=== PATIENT | male | born 1955 | race Caucasian/White ===

== ENCOUNTER → 2016-12-12 | Outpatient (CLI) | payer OTHER, BC ==
[~2016-12-12] VITALS: Ht 177.8 cm; Wt 123.6 kg
[~2016-12-12] MED LIST: ADULT LOW DOSE81 MG PO; ALLEGRA ALLERG180 MG PO; ALLEGRA180 MG PO; ALTACE10 M1 PO; ALTACE10 MG PO; AMLODIPINE BESY10 MG PO; AUGMENTIN 875875 MG PO; BYSTOLIC10 MG PO; CLARITIN10 M2 PO; CLONIDINE HCL0.1 MG PO; DESYREL100 MG PO; DESYREL50 MG PO; DIOVAN HCT 3201 EAC1 PO; DIOVAN160 MG PO; EPIPEN0.3 MG/0.3 IM; HYDROCHLOROTHIA25 M2 PO; HYDROCODON-ACE1 EAC5 PO; HYDROCODONE-AP1 EAC6; HYDROCODONE-AP1 EACH PO; IBUPROFEN 200200 M1 PO; LEVAQUIN 500 M500 M4 PO; LIDOCAINE-HC 3-07 GM RC; LIDOCAINE35.44 GM TP; MECLIZINE 25 MG25 M1 PO; MOBIC7.5 MG PO; NASONEX17 GM; NEURONTIN 300300 M1 PO; NEXIUM40 MG PO; NORCO 10-325 T1 EACH PO; OMEPRAZOLE20 M2 PO; SIMVASTATIN40 MG; SIMVASTATIN40 MG PO; SIMVASTATIN80 MG PO; TOPROL XL100 MG PO; TRAZODONE; TRAZODONE HCL100 MG PO; VIAGRA100 MG PO; VOLTAREN GEL 1100 G1 TOP
--- NOTE | ~2016-12-12 | HPC ---
[facility] [address] [place] [address] PAIN MANAGEMENT CONSULTATION Name: CAM JACOME Room #: REG Chapo Polk#: [id number] Admission: 12/12/16 Attend Phys: Kevon Fair DO Discharge: Date of : 59 Report #: [id number] THIS REPORT FOR: //name// CC: Kevon DIAZ The patient is a 61-year-old gentleman. Typically seen by Dr. Jeremy Guveara for multiple somatic pain injuries, chronic headaches, status post anterior cervical disk fusion, traumatic brain injury, morbid obesity requiring complex medication management. Last urine drug screen was back in September 2013 is positive for hydrocodone. He has been maintained on 60 mg of hydrocodone a day for quite some time. Last seen in the pain clinic for 08/11/2016. Discussed possible cervical epidural injection at that time. The patient returns to pain clinic today. He is complaining of multiple pain generators. Most recently, he has been in the ER and referred to ENT for "ear pain." States he has had some decreased auditory acuity in the right ear along with some tinnitus. He has been prescribed Augmentin. Ostensibly, he has otitis media. Complaining of some neck pain. Cervical range of motion is relatively full considering prior ACDF. Upper extremity strength is symmetric. He complains that all movements exacerbate pain. I did not detect any cervical adenopathy. Tender with subjective pain in the neck, but no discrete trigger points noted. The patient complains of a cost of all medications. States he did not get gabapentin filled, as it was "his choice" if he was going to take it or not (?). Nonetheless, he did not get this medicine filled. He stated he would take renewal for his meloxicam because it was only "4 dollars even though I do not think it works." He absolutely did of course one is hydrocodone tablets, I did renew that prescription for today. The patient also requested renewal of lidocaine topical. He requested no other medications. PHYSICAL EXAMINATION: VITAL SIGNS: As noted, obese gentleman, BMI is 39.1 kilograms per meter squared. Blood pressure is 117/75, pulse 63, respirations 16, room air oxygen saturation 95%. NECK: Cervical range of motion is modestly diminished. EXTREMITIES: Upper extremities modestly diminished. Upper extremity strength is symmetric. Cervical paravertebral muscles and trapezius muscles have diffuse tenderness. No discrete trigger points noted. ASSESSMENT: Chronic pain syndrome requiring complex medication management, morbid obesity, history of traumatic brain injury, status post anterior cervical disk fusion, stable on baseline medication, contract opiate consent to treat the patient with Dr. Jeremy Guevara. I have taken the liberty of renewing his [address] [address] PAIN MANAGEMENT CONSULTATION Name: CAM JACOME Room #: REG CARLOS ALBERTO Polk#: [id number] Admission: 12/12/16 Attend Phys: Kevon Fair DO Discharge: Date of : 59 Report #: [id number] current medications, follow up with Dr. Guevara in 3 months. May consider cervical epidural injection at that time. May consider repeat urine drug screen, as this has been about 3-year since the last UDS. Discharged in good and stable condition. <ELECTRONICALLY SIGNED> By: Kevon Fair DO 12/14/16 0801 [id number] Kevon Fair DO /nt
[2016-12-12 14:16] VITALS: BP 117/75
== END | disposition home or self-care (01) ==
LOC: PAIN 06:55
DX: G89.4 Chronic pain syndrome (principal); E66.01 Morbid (severe) obesity due to excess calories; Z98.890 Other specified postprocedural states; Z87.820 Personal history of traumatic brain injury; Z68.39 Body mass index [BMI] 39.0-39.9, adult; Z88.8 Allergy status to other drugs, medicaments and biological substances; Z79.899 Other long term (current) drug therapy

== ENCOUNTER → 2017-04-10 | Outpatient (CLI) | payer OTHER, BC ==
--- NOTE | ~2017-04-10 | HPC ---
[facility] [address] [place] [address] PAIN MANAGEMENT CONSULTATION Name: CAM JACOME Room #: REG DORISChapo Polk#: [id number] Admission: 04/10/17 Attend Phys: Jeremy Guevara MD Discharge: Date of : 59 Report #: [id number] THIS REPORT FOR: //name// CC: Jeremy DIAZ DATE OF SERVICE: 04/10/2017 SUBJECTIVE: Followup visit for management of high risk medications. The patient presents to the pain clinic today with his new ! With great effort, he has introduced himself too and arranged for a "mail-order bride." She is from the [facility] and is here today with him at his office visit. He also has her son here as well. Both have been in the [place] for just a little over 10 days. They have been with the patient since 04/03. He seems happy. His pain score today is an 8 typical, described as neck pain radiating into his arm and left hand associated with headaches. Pain is dramatically reduced by medication, which I provided for him for a number of years under terms of written opioid agreement that was originally signed by the patient and myself in 2005; it has now been nearly 12 years. He has never taken medication beyond hydrocodone and his dose has been steady at about 60 mg a day. He has no significant side effects. In addition to the hydrocodone, he is using meloxicam and Lidoderm patches. I have suggested that he use Salonpas 4% patches, which should be covered by his insurance. Because of his radicular symptoms, an MRI was ordered. It does show posterior disk osteophyte complex at C5-C6 with a superimposed left paracentral lateral recess protrusion. This could be a cause of cervical radiculopathy. He may be a candidate for a cervical epidural injection in the future if this does not improve with time. For now, we will continue managing with medications and symptomatically. The patient, of course as noted throughout the chart, has traumatic brain injury. This left him with many life challenges. Seems to be making the best of it. PHYSICAL EXAMINATION: GENERAL: He seems a bit happier today with his new bride. His affect, however, is always flat. Speech is hesitant. He has a rather angry countenance. VITAL SIGNS: Blood pressure is 133/77, heart rate is 75, respirations 16. His BMI was over 40, but he was unable to be weighed today. We discussed weight loss. He says he generally gains weight in the winter. Exercise is critical. MUSCULOSKELETAL: Tenderness across his cervical spine is noted. Pain with forward flexion, external rotation is noted as well. Mild weakness is noted in [address] [address] PAIN MANAGEMENT CONSULTATION Name: CAM JACOME Room #: REG CARLOS ALBERTO Polk#: [id number] Admission: 04/10/17 Attend Phys: Jeremy Guevara MD Discharge: Date of : 59 Report #: [id number] the left upper extremity in comparison to the right. IMPRESSION: 1. Chronic intractable cervicalgia, now with some radiculopathy. 2. Chronic migraine headaches. 3. Morbid obesity. 4. History of closed head injury with depression and anger issues as well as chronic anxiety. 5. Hypertension. 6. Management of high risk medications under terms of written opioid agreement. Hydrocodone was provided for him under terms of our usual agreement. Urine drug screen will be performed at next visit. Safeguarding of medication is critical, discussed this with him at some length today. Congratulations were provided to the patient and his and he was discharged from the clinic with a followup in 3 months. By: [id number] Jeremy Guevara MD /nt
[2017-04-10 14:41] VITALS: BP 133/77
== END ==
LOC: PAIN 07:36
DX: E66.01 Morbid (severe) obesity due to excess calories (principal); I10 Essential (primary) hypertension; G43.909 Migraine, unspecified, not intractable, without status migrainosus; Z79.899 Other long term (current) drug therapy

== ENCOUNTER → 2017-06-15 | Outpatient (CLI) | payer OTHER, BC ==
[~2017-06-15] VITALS: Ht 177.8 cm; Wt 130.2 kg
[~2017-06-15] MED LIST changes: +LIPITOR10 MG PO; +VOLTAREN GEL 1100 G2 TOP
--- NOTE | ~2017-06-15 | HPC ---
[facility] [place] [address] PAIN MANAGEMENT CONSULTATION Name: CAM JACOME Room #: REG CARLOS ALBERTO Felicitas#: [id number] Admission: 06/15/17 Attend Phys: Jeremy Guevara MD Discharge: Date of : 59 Report #: [id number] THIS REPORT FOR: //name// CC: Jeremy Cueva DO DATE OF SERVICE: 06/15/2017 Followup visit for chronic pain, management of high-risk medications. HISTORY OF PRESENT ILLNESS: The patient returns to pain clinic today with his and stepson. He is in his usual state of [id number] agitation. Those who know the patient or are familiar with him are well aware of his chronic low level anger state. He has had trauma in the past, well documented throughout my record. He lives day-to-day. He is disabled. He has a that he located on the Internet and she has been steadfast and with him for the last 2 visits. She also has her son. He is constantly involved in some dispute with the insurance company, the pharmacy, the hospital, other physicians, Medicare, social security and others. He is highly suspicious and highly demanding. He spends a good deal of time seeking out someone to help him with his circumstances. He has concerns about the citizenship for his and adopted son who have been in the [place] for less than a year. He has multiple issues going, creating stress and anxiety. I have followed the patient for intractable pain since he was referred to our clinic because of his Medicaid status in [address] Jeremy [place], a Cardiovascular teamcenter consultant at [facility]. He never saw Dr. [place] again. I have been taking care of the patient's pain medication since that time and he has been on schedule receiving oxycodone 60 mg per day, taken in the form of low cost Percocet one to two tablets every 4-6 hours, not to exceed 6 per day; 180 tablets will last him 3 months. One thing about the patient seems to be that he is set on a schedule and he has used his medications exactly as prescribed. I have never had a call from him requesting medication early. One of our goals has been to provide pain relief for him, keep him from showing up in the Emergency Room visits and avoiding hospitalizations. He has done all of that. He has not sought out additional high cost injection therapy, which in my opinion would provide only short term relief for him. I have in the past considered epidural injections, but have avoided them. He may have some radiculopathy and we have considered this on a couple of occasions. An MRI of the cervical spine does show that he has posterior disk osteophyte complex at C5-C6 with superimposed left paracentral lateral disk protrusion, which may be a cause of radiculopathy. Most of his pain is in his neck and up the back of his head. [address] [address] PAIN MANAGEMENT CONSULTATION Name: CAM JACOME Room #: REG CARLOS ALBERTO Polk#: [id number] Admission: 06/15/17 Attend Phys: Jeremy Guevara MD Discharge: Date of : 59 Report #: [id number] MEDICATIONS: Reviewed and are reconciled with the electronic record. He had some trouble coming up with some of his new medications prescribed by Dr. Cueva. PQRS ASSESSMENT: Shows that he does have osteoarthritis of the left and right lower extremity, involving hip and knee. This causes him to walk with antalgic gait. He is morbidly obese with a BMI of 41.2. His weight has been stable. He has no desire for weight loss. Blood pressure is 169/104, heart rate 64, respirations 16 and oxygen saturation 98. Pain intensity averages between 8 and 10 on a daily basis. He is a fall risk due to dizziness. He has not fallen in the last 3 months. He is not on a blood thinner, but does have a history of hypertension. He has a signed opioid agreement, which we have reviewed at each visit. He understands the importance of safeguarding medications in the opioid crisis in the [place]. He is at exactly 90 morphine milligram equivalents. He does not smoke nor use alcohol and is considered low-risk for addiction. PHYSICAL EXAMINATION: NECK: Examination of his neck does reveal significant range of motion decrease in flexion, extension and rotation. EXTREMITIES: He has normal strength in his upper extremities. No numbness, tingling or weakness. IMPRESSION: 1. Chronic intractable pain with cervicalgia and mild radiculopathy. 2. Chronic migraine headaches. 3. History of closed injury with depression and anger issues, which are longstanding. He has chronic anxiety and personality disorder. 4. Morbid obesity. 5. Hypertension. 6. Management of high-risk medications. RECOMMENDATIONS: I provided him with medication as we described above, oxycodone 10/325 one tablet q. 4 hours for a total of 180 tablets per month. Our goals of avoiding the Emergency Room, hospitalizations and unnecessary procedures have been outlined. I believe that pain control has helped at least stabilize a portion of the patient's life for him. We have a great deal of empathy for him in our clinic. He spent over an hour and 45 minutes in the clinic. He spent nearly 35 minutes akgb-yk-ezhi with me during interview and counseling. <ELECTRONICALLY SIGNED> By: Jeremy Guevara MD 07/05/17 1640 [id number] Jeremy Guevara MD /nt
[2017-06-15 12:47] VITALS: BP 169/104
== END ==
LOC: PAIN 06:55
DX: M54.12 Radiculopathy, cervical region (principal); I10 Essential (primary) hypertension; E66.01 Morbid (severe) obesity due to excess calories; F41.9 Anxiety disorder, unspecified; G43.909 Migraine, unspecified, not intractable, without status migrainosus; Z79.899 Other long term (current) drug therapy

== ENCOUNTER → 2017-10-30 | Outpatient (CLI) | payer OTHER, BC ==
[~2017-10-30] VITALS: Ht 177.8 cm; Wt 126.8 kg
--- NOTE | ~2017-10-30 | HPC ---
[facility] [address] [facility] [place] [address] PAIN MANAGEMENT CONSULTATION Name: CAM JACOME Room #: REG Chapo Consuelo.#: [id number] Admission: 10/30/17 Attend Phys: Jeremy Guevara MD Discharge: Date of : 59 Report #: [id number] THIS REPORT FOR: //name// CC: Physician staff Jeremy DIAZ DATE OF SERVICE: 10/30/2017 Followup visit for chronic neck pain, osteoarthritis, bilateral knees. The patient presents to the pain clinic today with his and also his stepson. He is in his usual emotional state of depression and underlying anger. This is related to his closed head injury. I went into a lengthy description today of his symptoms. He has chronic headaches and neck pain, which are well documented throughout my record. He has had MRI within the last 2 years, which shows post-surgical changes of ACDF at C6-C7 and multilevel spondylosis prominent at C5-C6. There is no overall stenosis; however, there are some C6 related narrowings. Although the x-rays are not available to me, I do have reports to suggest that he has significant osteoarthritis of the knees, left worse than right. He saw Jack Bailey MD at [facility]. He was offered injections as well as arthroplasty both of which he refused. I reviewed his medications in detail. They remain essentially unchanged. I have continued him on hydrocodone 10/325 one tablet 6 times daily for a total of 60 mg as of hydrocodone equal to 60 morphine milligram equivalents. He has been well adjusted to this dose of medication and has been taking it for over 10 years. He is always on time. He signed an opioid agreement. He safeguards his medication carefully. I have no reasons to suspect that the patient has been misusing abusing medication. He reports that he would like something additional for pain. I have originally used lidocaine gel, which he has found to be helpful, applied to his neck. I have suggested that he try Voltaren gel 4 times daily. This can be applied both to neck and knee, and I have given him strict instructions on how to utilize it. PQRS assessment shows that he has osteoarthritis and morbid obesity. We have talked about weight loss and exercise to try and help mediate the pain associated with his arthritis. He has been treated for hypertension and has some bradycardia from the Toprol prescribed. He does not smoke nor drink. He uses opioids carefully as described under terms of an opioid agreement. He is off all blood thinners. [address] [address] PAIN MANAGEMENT CONSULTATION Name: JACOMECAM TORREZ Jorge Room #: REG CL Felicitas#: [id number] Admission: 10/30/17 Attend Phys: Jeremy Guevara MD Discharge: Date of : 59 Report #: [id number] Pain score today is 9/10. He is not a fall risk. PHYSICAL EXAMINATION: He again is an unfortunate gentleman with angry affect and a history of depression. He moves independently from sitting to standing position. He walks with a stable gait. Examination of the neck reveals tenderness with range of motion. Deep tendon reflexes are diminished at the biceps, triceps and brachioradialis. Examination of the spine reveals tenderness as well with restrictions in flexion and extension. Full range of motion was achieved with both right and left knee without crepitus. There is no palpable effusion, but he complains of pain. Straight leg raising is negative for radicular symptoms. IMPRESSION: 1. Chronic intractable back pain with cervicalgia and radiculopathy. 2. Chronic migraines. 3. History of closed head injury. 4. Osteoarthritis, bilateral knees. 5. Hypertension. 6. Management of high risk medications under terms of an opioid agreement. PLAN: Follow up in 2-3 months. Medication instructions were provided to the patient and his family, will safely safeguard all medications. By: [id number] Jeremy Guevara MD /nt
[2017-10-30 12:30] VITALS: BP 135/77
== END ==
LOC: PAIN 06:41
DX: M17.0 Bilateral primary osteoarthritis of knee (principal); I10 Essential (primary) hypertension; M54.12 Radiculopathy, cervical region; G43.909 Migraine, unspecified, not intractable, without status migrainosus; M54.2 Cervicalgia; G89.29 Other chronic pain; Z79.899 Other long term (current) drug therapy

== ENCOUNTER → 2018-01-29 | Outpatient (CLI) | payer OTHER, BC ==
[~2018-01-29] VITALS: Ht 177.8 cm; Wt 125.7 kg
--- NOTE | ~2018-01-29 | HPC ---
[facility] [address] [place] [address] PAIN MANAGEMENT CONSULTATION Name: JACOME,CAM Patel Room #: REG [facility] Felicitas#: [id number] Admission: 01/29/18 Attend Phys: Jeremy Guevara MD Discharge: Date of : 59 Report #: [id number] THIS REPORT FOR: //name// CC: Physician staff Jeremy Cueva DO DATE OF SERVICE: 01/29/2018 REASON FOR VISIT: Followup visit for chronic pain. HISTORY OF PRESENT ILLNESS: Cam returns to the Pain Clinic today with his and his stepson. He was upset from the moment he stepped into the front door of our office. Unfortunately for the patient, this is his typical state of mind and his angry affect related to his traumatic brain injury has been well documented. He went through a litany of complaints in the office today about his life and how everyone from physicians to pharmacist to insurance companies to the federal government have conspired against him to make life more difficult. He hurts every day and in order. His pains are neck with radiation into the occiput, bilateral knees, hips and chronic low back pain. Because of his multiple pain generators, I have been careful to avoid promising him too much with Interventional therapies or injections. He has been able to manage his pain fairly effectively over the course of nearly a decade with hydrocodone 10/325 taken 1-2 tablets 3 times a day. He has been very good about managing his medicines. He reports to me that he has not run out of medication. Still has a small amount of medication remaining from the prescription provided for him on 10/30/2017. He understands that he must take his medication on schedule and carefully or he will run out. He has signed an opioid agreement. He is careful with his medicines because he needs it. Without it, I feel that he would be much worse and he has been suffering from episodes of hypertension and the challenges of finding appropriate medication. He has an wood buffer and spoke with me today about his attempts to seek a financial outcome due to some of the documented toxicities of various antihypertensives, which he is currently taking. We completed a PQRS review. It shows that he has severe osteoarthritis of the knees bilaterally. This results in painful antalgic gait and difficulty with standing. He is morbidly obese with a BMI of 39.8. He is hypertensive and is on a variety of medications that are reconciled through the chart. Please see the nurse's electronic medical charting of these medications. None were adjusted. His blood pressure today is 140/85, heart rate is 63 and O2 sat 98%. Pain intensity scores at a 10/10. He has not fallen nor has he considered a fall risk. He is on no blood thinners. He has signed an opioid agreement. A risk assessment tool was provided to the patient but he had difficulty in [address] [address] PAIN MANAGEMENT CONSULTATION Name: CAM JACOME [facility]: [facility] [id number] Admission: 01/29/18 Attend Phys: Jeremy Guevara MD Discharge: Date of : 59 Report #: [id number] answering the questions. He does not smoke nor does he use alcohol. PHYSICAL EXAMINATION: The rest of the physical exam demonstrates decreased range of motion of the cervical spine. Localized tenderness below the occiput. Tenderness along the side of the neck and into the upper back. Deep tendon reflexes are diminished in the upper extremities and lower extremities. Tenderness is located throughout the lumbosacral spine as well and decreased range of motion bilaterally in each knee in extension and flexion. No effusion is present. IMPRESSION: 1. Chronic intractable pain with multiple pain generators. 2. Closed head injury. 3. Osteoarthritis, bilateral knees. 4. Hypertension. 5. Management of high-risk medications under terms of an opioid agreement. PLAN: I continue to feel that his medications are important in keeping the patient out of the hospital and out of the Emergency Room. I will continue to provide them for him under terms of our agreement. His constant anger and suspicion of all parties has been noted for many years. He has not shown signs of being a harm to himself or to society. I have never heard him make threats. I am concerned, however, that someone who is so emotionally labile and unstable. Continues to live independently. He is fortunate that his current partner has stayed with him and appears to be a steadfast. A followup visit is scheduled in 3 months. By: [id number] Jeremy Guevara MD /nt
[2018-01-29 14:29] VITALS: BP 140/85
== END ==
LOC: PAIN 06:37
DX: S09.90XA Unspecified injury of head, initial encounter (principal); G89.4 Chronic pain syndrome; M17.0 Bilateral primary osteoarthritis of knee; I10 Essential (primary) hypertension; X58.XXXA Exposure to other specified factors, initial encounter; Y93.89 Activity, other specified; Y92.89 Other specified places as the place of occurrence of the external cause; Y99.8 Other external cause status; Z79.891 Long term (current) use of opiate analgesic

== ENCOUNTER → 2018-05-10 | Outpatient (CLI) | payer OTHER, BC ==
[~2018-05-10] VITALS: Ht 177.8 cm; Wt 126.6 kg
[~2018-05-10] MED LIST changes: +CIPRO500 M1 PO; +LIDOCAINE35.44 GM TOP; +SYNTHROID50 MCG PO
[2018-05-10 12:45] VITALS: BP 132/78
--- NOTE | 2018-05-10 13:03 | NUR ---
Pain Clinic Assessment: 1. History of Osteoarthritis: Left Lower Extremity Right Lower Extremity History of Rheumatoid Arthritis: Not Applicable 2. Height: 5 ft. 10 in. 177.8 cm. Weight: 279.2 lb. oz. 126.645 kg. Patient's BMI: 40.1 3. Vital Signs: BP: 132/78 Pulse: 73 Resp: 22 Temp: 02 Sat: 98 ECG Mon: 4. Pain Intensity: 9-10 5. Fall Risk: Dizziness: N Needs help standing or walking: N Fallen in the last 3 months: N Fall risk comments: 6. Patient on Blood Thinner: None 7. History of Hypertension: Y 8. Opioid Therapy greater than 6 weeks: Y Opiate Contract Signed: 9. Risk Assessment Tool Provided: PT REFUSED TO ANSWER 10. Functional Assessment Tool: 70/70 11. Recreational Drug Use: Never Drug Type: Tobacco Use: Never Smoker Tobacco Type: Amount or Packs/day: How Many Years: Alcohol Use: No Frequency: Quant:
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
== END ==
LOC: PAIN 07:31
DX: M17.0 Bilateral primary osteoarthritis of knee (principal); G89.4 Chronic pain syndrome; I10 Essential (primary) hypertension; E03.9 Hypothyroidism, unspecified; Z79.891 Long term (current) use of opiate analgesic; Z79.899 Other long term (current) drug therapy

== ENCOUNTER → 2018-05-31 | Outpatient (CLI) | payer OTHER, BC ==
[~2018-05-31] VITALS: Ht 177.8 cm; Wt 126.6 kg
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
[2018-05-31 10:25] VITALS: BP 120/77
--- NOTE | 2018-05-31 10:43 | NUR ---
Pain Clinic Assessment: 1. History of Osteoarthritis: Left Lower Extremity Right Lower Extremity History of Rheumatoid Arthritis: Not Applicable 2. Height: 5 ft. 10 in. 177.8 cm. Weight: 279.0 lb. oz. 126.554 kg. Patient's BMI: 40.0 3. Vital Signs: BP: 120/77 Pulse: 63 Resp: 16 Temp: 02 Sat: 97 ECG Mon: 4. Pain Intensity: 10 AT END OF THE DAY 5. Fall Risk: Dizziness: Y Needs help standing or walking: N Fallen in the last 3 months: N Fall risk comments: 6. Patient on Blood Thinner: None 7. History of Hypertension: Y 8. Opioid Therapy greater than 6 weeks: Y Opiate Contract Signed: 9. Risk Assessment Tool Provided: PT REFUSED TO ANSWER 10. Functional Assessment Tool: 70/70 11. Recreational Drug Use: Never Drug Type: Tobacco Use: Never Smoker Tobacco Type: Amount or Packs/day: How Many Years: Alcohol Use: No Frequency: Quant:
== END | disposition home or self-care (01) ==
LOC: PAIN 07:12
DX: M17.0 Bilateral primary osteoarthritis of knee (principal); G89.29 Other chronic pain; Z79.891 Long term (current) use of opiate analgesic; Z88.2 Allergy status to sulfonamides; Z88.8 Allergy status to other drugs, medicaments and biological substances; Z79.82 Long term (current) use of aspirin; Z79.899 Other long term (current) drug therapy; Z98.890 Other specified postprocedural states

== ENCOUNTER → 2018-08-13 | Outpatient (CLI) | payer OTHER, BC ==
[~2018-08-13] VITALS: Ht 177.8 cm; Wt 131.1 kg
[~2018-08-13] MED LIST changes: +ANECREAM530 GM TOP; +RECTICARE30 GM TOP
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
[2018-08-13 10:28] VITALS: BP 104/62
== END ==
LOC: PAIN 06:52
DX: M47.812 Spondylosis without myelopathy or radiculopathy, cervical region (principal); M17.0 Bilateral primary osteoarthritis of knee; I10 Essential (primary) hypertension; Z87.891 Personal history of nicotine dependence; Z79.899 Other long term (current) drug therapy

== ENCOUNTER → 2018-11-22 | Outpatient (CLI) | payer OTHER, BC ==
[~2018-11-22] VITALS: Ht 177.8 cm; Wt 130.9 kg
[~2018-11-22] MED LIST changes: +MIRTAZAPINE15 M2 PO
[2018-11-22 12:59] VITALS: BP 144/88
--- NOTE | 2018-11-22 13:22 | NUR ---
Pain Clinic Assessment: 1. History of Osteoarthritis: Left Lower Extremity Right Lower Extremity History of Rheumatoid Arthritis: Not Applicable 2. Height: 5 ft. 10 in. 177.8 cm. Weight: 288.6 lb. oz. 130.908 kg. Patient's BMI: 41.4 3. Vital Signs: BP: 144/88 Pulse: 60 Resp: 20 Temp: 02 Sat: 97 ECG Mon: 4. Pain Intensity: 9 5. Fall Risk: Dizziness: N Needs help standing or walking: N Fallen in the last 3 months: N Fall risk comments: HAVING DIZZY SPELLS SINCE LAST SUMMER R/T BLOOD PRESSURE DROPS THAT COME ON SUDDENLY 6. Patient on Blood Thinner: None 7. History of Hypertension: Y 8. Opioid Therapy greater than 6 weeks: Y Opiate Contract Signed: 9. Risk Assessment Tool Provided: PT REFUSED TO ANSWER 10. Functional Assessment Tool: 70/70 11. Recreational Drug Use: Never Drug Type: Tobacco Use: Never Smoker Tobacco Type: Amount or Packs/day: How Many Years: Alcohol Use: No Frequency: Quant:
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
== END ==
LOC: PAIN 11:47
DX: M54.12 Radiculopathy, cervical region (principal); G89.29 Other chronic pain; G43.909 Migraine, unspecified, not intractable, without status migrainosus; E66.9 Obesity, unspecified; I10 Essential (primary) hypertension; E03.9 Hypothyroidism, unspecified; F32.9 Major depressive disorder, single episode, unspecified; M19.90 Unspecified osteoarthritis, unspecified site; Z79.891 Long term (current) use of opiate analgesic

== ENCOUNTER → 2019-02-11 | Outpatient (CLI) | payer OTHER, BC ==
[~2019-02-11] VITALS: Ht 177.8 cm; Wt 131.5 kg
[~2019-02-11] MED LIST changes: +LEVAQUIN 750 M750 MG PO; +MEDROLDOSEPACK PO
[2019-02-11 14:02] VITALS: BP 145/89
--- NOTE | 2019-02-11 14:18 | NUR ---
Pain Clinic Assessment: 1. History of Osteoarthritis: Left Lower Extremity Right Lower Extremity History of Rheumatoid Arthritis: Not Applicable 2. Height: 5 ft. 9 in. 177.8 cm. Weight: 289.8 lb. oz. 131.453 kg. Patient's BMI: 41.6 3. Vital Signs: BP: 145/89 Pulse: 87 Resp: 20 Temp: 02 Sat: 97 ECG Mon: 4. Pain Intensity: 9 5. Fall Risk: Dizziness: N Needs help standing or walking: N Fallen in the last 3 months: N Fall risk comments: HAVING DIZZY SPELLS SINCE LAST SUMMER R/T BLOOD PRESSURE DROPS THAT COME ON SUDDENLY 6. Patient on Blood Thinner: None 7. History of Hypertension: Y 8. Opioid Therapy greater than 6 weeks: Y Opiate Contract Signed: 9. Risk Assessment Tool Provided: PT REFUSED TO ANSWER 10. Functional Assessment Tool: 70/70 11. Recreational Drug Use: Never Drug Type: Tobacco Use: Never Smoker Tobacco Type: Amount or Packs/day: How Many Years: Alcohol Use: No Frequency: Quant:
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
== END ==
LOC: PAIN 06:36
DX: G89.4 Chronic pain syndrome (principal); F32.9 Major depressive disorder, single episode, unspecified; I10 Essential (primary) hypertension; E66.09 Other obesity due to excess calories; E03.9 Hypothyroidism, unspecified; G43.909 Migraine, unspecified, not intractable, without status migrainosus; Z79.891 Long term (current) use of opiate analgesic

== ENCOUNTER 2019-06-24 13:30 | Emergency (ER) | payer OTHER, BC ==
[~2019-06-24] VITALS: Ht 177.8 cm; Wt 131.5 kg
[2019-06-24 13:30] VITALS: BP 104/58
[~2019-06-24 13:30] MED LIST changes: -CARAFATE 11 GM/10 M1 PO; -PREDNISONE 20 M20 MG PO
[2019-06-24] MEDS ORDERED: CARAFATE 11 GM/10 M1 PO (14:03)
[2019-06-24] MEDS ORDERED: PREDNISONE 20 M20 MG PO (14:03)
== END 2019-06-24 14:35 | disposition home or self-care (01) ==
LOC: ER 13:30
DX: J02.9 Acute pharyngitis, unspecified (principal); Z71.1 Person with feared health complaint in whom no diagnosis is made; Z88.6 Allergy status to analgesic agent; Z88.1 Allergy status to other antibiotic agents; Z88.2 Allergy status to sulfonamides; Z88.8 Allergy status to other drugs, medicaments and biological substances

== ENCOUNTER → 2019-06-24 | Outpatient (CLI) | payer OTHER, BC ==
[~2019-06-24] VITALS: Ht 175.3 cm; Wt 131.1 kg
[~2019-06-24] MED LIST changes: +CARAFATE 11 GM/10 M1 PO; +PREDNISONE 20 M20 MG PO
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
[2019-06-24 12:42] VITALS: BP 103/61
--- NOTE | 2019-06-24 12:49 | NUR ---
Pain Clinic Assessment: 1. History of Osteoarthritis: Left Lower Extremity Right Lower Extremity History of Rheumatoid Arthritis: DENIES 2. Height: 5 ft. 9 in. 175.3 cm. Weight: 289.0 lb. oz. 131.090 kg. Patient's BMI: 42.7 3. Vital Signs: BP: 103/61 Pulse: 60 Resp: 18 Temp: 02 Sat: 90 ECG Mon: 4. Pain Intensity: 9 5. Fall Risk: Dizziness: N Needs help standing or walking: N Fallen in the last 3 months: N Fall risk comments: HAVING DIZZY SPELLS SINCE LAST SUMMER R/T BLOOD PRESSURE DROPS THAT COME ON SUDDENLY 6. Patient on Blood Thinner: None 7. History of Hypertension: Y 8. Opioid Therapy greater than 6 weeks: Y Opiate Contract Signed: 12/21/16 9. Risk Assessment Tool Provided: PT REFUSED TO ANSWER 10. Functional Assessment Tool: 70/ 11. Recreational Drug Use: Never Drug Type: Tobacco Use: Never Smoker Tobacco Type: Amount or Packs/day: How Many Years: Alcohol Use: No Frequency: Quant:
== END ==
LOC: PAIN 05-30 06:44
DX: M54.81 Occipital neuralgia (principal); G89.4 Chronic pain syndrome; M19.90 Unspecified osteoarthritis, unspecified site; G62.9 Polyneuropathy, unspecified; R45.1 Restlessness and agitation; F60.3 Borderline personality disorder; Z79.891 Long term (current) use of opiate analgesic; Z79.899 Other long term (current) drug therapy

== ENCOUNTER → 2019-09-16 | Outpatient (CLI) | payer OTHER, BC ==
[~2019-09-16] MED LIST changes: +CARAFATE 11 GM/10 M1 PO; +PREDNISONE 20 M20 MG PO
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
== END ==
LOC: TELEPC 06:54 → PAIN 09:30
DX: M54.2 Cervicalgia (principal); R51 Headache; I10 Essential (primary) hypertension; E66.01 Morbid (severe) obesity due to excess calories; E78.00 Pure hypercholesterolemia, unspecified; F11.20 Opioid dependence, uncomplicated; F07.89 Other personality and behavioral disorders due to known physiological condition; Z79.899 Other long term (current) drug therapy

== ENCOUNTER → 2019-12-30 | Outpatient (CLI) | payer OTHER, BC ==
[~2019-12-30] VITALS: Ht 175.3 cm; Wt 134.5 kg
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
[2019-12-30 13:11] VITALS: BP 133/82
--- NOTE | 2019-12-30 13:29 | NUR ---
Pain Clinic Assessment: 1. History of Osteoarthritis: Left Lower Extremity Right Lower Extremity History of Rheumatoid Arthritis: DENIES 2. Height: 5 ft. 9 in. 175.3 cm. Weight: 296.6 lb. oz. 134.537 kg. Patient's BMI: 57.9 3. Vital Signs: BP: 133/82 Pulse: 53 Resp: 20 Temp: 02 Sat: 97 ECG Mon: 4. Pain Intensity: 9 5. Fall Risk: Dizziness: N Needs help standing or walking: N Fallen in the last 3 months: N Fall risk comments: HAVING DIZZY SPELLS SINCE LAST SUMMER R/T BLOOD PRESSURE DROPS THAT COME ON SUDDENLY 6. Patient on Blood Thinner: None 7. History of Hypertension: Y 8. Opioid Therapy greater than 6 weeks: Y Opiate Contract Signed: 12/21/16 9. Risk Assessment Tool Provided: PT REFUSED TO ANSWER 10. Functional Assessment Tool: 70/ 11. Recreational Drug Use: Never Drug Type: Tobacco Use: Never Smoker Tobacco Type: Amount or Packs/day: How Many Years: Alcohol Use: No Frequency: Quant:
== END ==
LOC: PAIN 06:59
PROVIDERS: ATTEND Anesthesiology Pain Medicine
DX: S09.90XA Unspecified injury of head, initial encounter (principal); G89.4 Chronic pain syndrome; E66.9 Obesity, unspecified; E03.9 Hypothyroidism, unspecified; Z79.891 Long term (current) use of opiate analgesic; X58.XXXA Exposure to other specified factors, initial encounter; Y93.89 Activity, other specified; Y92.89 Other specified places as the place of occurrence of the external cause; Y99.8 Other external cause status

== ENCOUNTER → 2020-03-30 | Outpatient (CLI) | payer OTHER, BC | LOC: TELEPC 06:48 → PAIN 09:17 | PROVIDERS: ATTEND Anesthesiology Pain Medicine | DX: G89.4 Chronic pain syndrome (principal); M47.812 Spondylosis without myelopathy or radiculopathy, cervical region; Z79.899 Other long term (current) drug therapy ==

== ENCOUNTER → 2020-10-01 | Outpatient (CLI) | payer OTHER, BC ==
[~2020-10-01] VITALS: Ht 175.3 cm; Wt 144.1 kg
[~2020-10-01] MED LIST changes: +ALLER-EASE180 MG PO; +LIDOCAINE HC28.35 GM TOP; +NORVASC10 MG PO; +SPIRONOLACTONE25 MG PO
[2020-10-01 12:47] VITALS: BP 137/89
--- NOTE | 2020-10-01 13:14 | NUR ---
Pain Clinic Assessment: 1. History of Osteoarthritis: Left Lower Extremity Right Lower Extremity History of Rheumatoid Arthritis: DENIES 2. Height: 5 ft. 9 in. 175.3 cm. Weight: 317.6 lb. oz. 144.063 kg. Patient's BMI: 46.9 3. Vital Signs: BP: 137/89 Pulse: 91 Resp: 20 Temp: 02 Sat: 97 ECG Mon: 4. Pain Intensity: 10 5. Fall Risk: Dizziness: N Needs help standing or walking: Y Fallen in the last 3 months: Y Fall risk comments: HAVING DIZZY SPELLS SINCE LAST SUMMER R/T BLOOD PRESSURE DROPS THAT COME ON SUDDENLY 6. Patient on Blood Thinner: None 7. History of Hypertension: Y 8. Opioid Therapy greater than 6 weeks: Y Opiate Contract Signed: 12/21/16 9. Risk Assessment Tool Provided: PT REFUSED TO ANSWER 10. Functional Assessment Tool: 70/ 11. Recreational Drug Use: Never Drug Type: Tobacco Use: Never Smoker Tobacco Type: Amount or Packs/day: How Many Years: Alcohol Use: No Frequency: Quant:
== END ==
LOC: PAIN 10:40
PROVIDERS: ATTEND Anesthesiology Pain Medicine
DX: G89.29 Other chronic pain (principal); I10 Essential (primary) hypertension; F07.81 Postconcussional syndrome; E66.01 Morbid (severe) obesity due to excess calories; Z79.891 Long term (current) use of opiate analgesic; Z79.82 Long term (current) use of aspirin; Z79.899 Other long term (current) drug therapy; Z88.5 Allergy status to narcotic agent; Z88.2 Allergy status to sulfonamides; Z88.1 Allergy status to other antibiotic agents

== ENCOUNTER → 2021-05-03 | Outpatient (CLI) | payer OTHER, BC ==
[~2021-05-03] VITALS: Ht 175.3 cm; Wt 148.5 kg
[2021-05-03 13:51] VITALS: BP 164/99
--- NOTE | 2021-05-03 14:09 | NUR ---
Pain Clinic Assessment: 1. History of Osteoarthritis: Left Lower Extremity Right Lower Extremity History of Rheumatoid Arthritis: DENIES 2. Height: 5 ft. 9 in. 175.3 cm. Weight: 327.4 lb. oz. 148.508 kg. Patient's BMI: 48.3 3. Vital Signs: BP: 164/99 Pulse: 92 Resp: 20 Temp: 02 Sat: 100 ECG Mon: 4. Pain Intensity: 8 with meds 10 without me 5. Fall Risk: Dizziness: N Needs help standing or walking: Y Fallen in the last 3 months: Y Fall risk comments: HAVING DIZZY SPELLS SINCE LAST SUMMER R/T BLOOD PRESSURE DROPS THAT COME ON SUDDENLY 6. Patient on Blood Thinner: None 7. History of Hypertension: Y 8. Opioid Therapy greater than 6 weeks: Y Opiate Contract Signed: 12/21/16 9. Risk Assessment Tool Provided: PT REFUSED TO ANSWER 10. Functional Assessment Tool: 70/70 11. Recreational Drug Use: Never Drug Type: Tobacco Use: Never Smoker Tobacco Type: Amount or Packs/day: How Many Years: Alcohol Use: No Frequency: Quant:
== END ==
LOC: PAIN 10:40
PROVIDERS: ATTEND Anesthesiology Pain Medicine
DX: G89.29 Other chronic pain (principal); S09.90XA Unspecified injury of head, initial encounter; M54.2 Cervicalgia; G44.329 Chronic post-traumatic headache, not intractable; F07.81 Postconcussional syndrome; M17.0 Bilateral primary osteoarthritis of knee; Z88.8 Allergy status to other drugs, medicaments and biological substances; Z88.2 Allergy status to sulfonamides; Z68.42 Body mass index [BMI] 45.0-49.9, adult; I10 Essential (primary) hypertension; E66.01 Morbid (severe) obesity due to excess calories; X58.XXXA Exposure to other specified factors, initial encounter; Y92.89 Other specified places as the place of occurrence of the external cause; Y93.89 Activity, other specified; Y99.8 Other external cause status